=== PATIENT | male | born 1950 | race Caucasian/White ===

== ENCOUNTER 2018-11-15 18:23 | Inpatient (IN) | payer MEDICARE, OTHER ==
[2018-11-15] MEDS ORDERED: ONDANSETRON 4 MG/2 ML VIAL IVP STA (19:58)
[2018-11-15] MEDS ORDERED: fentaNYL (PF) 50 MCG/ML 2 ML AMP IV STA (19:58)
[2018-11-15] MEDS ORDERED: SODIUM CHLORIDE 0.9% 500 ML 500 ML IV ONE (19:58)
--- NOTE | 2018-11-15 20:06 | ED ---
Abdominal Pain HPI - General Chief Complaint: Abdominal Pain Stated Complaint: kidney stones Time Seen by Provider: 11/15/18 19:39 Source: patient Mode of arrival: wheelchair Limitations: no limitations - History of Present Illness Initial Comments: 67-year-old male patient presents to the emergency department today for evaluation of increased left flank pain and nausea. Patient states he woke around 0500 this morning with severe sharp stabbing left flank pain. Patient states that he was taken by ambulance to [facility], had labs and CT scan performed and was diagnosed with kidney stone. Patient states he was discharged back to the nursing facility where he resides, states that he was pain-free for several hours however the pain started again. Patient states he was given Phenix however did not seem to relieve his symptoms. Patient comes in requesting fentanyl. Patient states he is urinating without difficulty. Denies any hematuria. Denies any fever or chills. Patient states he did have a kidney stone one time in the past in 1987. Patient denies any recent rash, shortness breath, chest pain, diarrhea, constipation, back pain, numbness, tingling, dizziness, weakness, headache, visual changes, or any other complaints. - Related Data Home Medications Medication Instructions Recorded Confirmed Acetaminophen [Tylenol] 650 mg PO Q6H PRN 11/15/18 11/15/18 Cyanocobalamin (Vitamin B-12) 1,000 mcg PO DAILY 11/15/18 11/15/18 [Vitamin B-12] Ferrous Sulfate [Iron (65 MG 325 mg PO DAILY 11/15/18 11/15/18 Elemental)] Folic Acid 0.4 mg PO DAILY@0800 11/15/18 11/15/18 HYDROcodone/APAP 5-325MG [Phenix 1 - 2 tab PO Q4H PRN 11/15/18 11/15/18 5-325] Ondansetron HCl [Zofran] 8 mg PO Q8H PRN 11/15/18 11/15/18 Tamsulosin [Flomax] 0.4 mg PO DAILY PRN 11/15/18 11/15/18 Previous Rx's Medication Instructions Recorded Ondansetron [Zofran ODT] 4 mg PO Q8HR PRN #10 tab 11/15/18 Allergies Allergy/AdvReac Type Severity Reaction Status Date / Time Penicillins Allergy Unknown Verified 11/15/18 19:47 Childhood morphine AdvReac Nausea & Verified 11/15/18 19:47 Vomiting Review of Systems ROS Statement: Those systems with pertinent positive or pertinent negative responses have been documented in the HPI. ROS Other: All systems not noted in ROS Statement are negative. Past Medical History Additional Past Medical History / Comment(s): arthritis. scoliosis History of Any Multi-Drug Resistant Organisms: None Reported Past Surgical History: Hernia Repair Past Psychological History: No Psychological Hx Reported Smoking Status: Never smoker Past Alcohol Use History: Occasional Past Drug Use History: None Reported General Exam Limitations: no limitations General appearance: alert, in no apparent distress, other (Physical well- developed, well-nourished adult male patient who exhibits severe scoliosis. Vital signs upon presentation are temperature 98.2F, pulse 87, respirations 20, blood pressure 109/59, pulse ox 90% on room air.) Eye exam: Present: normal appearance, PERRL, EOMI. Absent: scleral icterus, conjunctival injection, periorbital swelling ENT exam: Present: normal exam, normal oropharynx, mucous membranes moist Respiratory exam: Present: normal lung sounds bilaterally. Absent: respiratory distress, wheezes, rales, rhonchi, stridor Cardiovascular Exam: Present: regular rate, normal rhythm, normal heart sounds. Absent: systolic murmur, diastolic murmur, rubs, gallop, clicks GI/Abdominal exam: Present: soft, normal bowel sounds. Absent: distended, tenderness, guarding, rebound, rigid Neurological exam: Present: alert, oriented X3, CN II-XII intact Psychiatric exam: Present: normal affect, normal mood Skin exam: Present: warm, dry, intact, normal color. Absent: rash Course Vital Signs 11/15/18 19:18 Temperature 98.0 F Pulse Rate 87 Respiratory 20 Rate Blood Pressure 109/59 O2 Sat by Pulse 90 L Oximetry Medical Decision Making - Medical Decision Making 67-year-old male patient coming from [facility] for evaluation of intractable left flank pain. Patient was diagnosed with kidney stone this morning. Was seen and evaluated at [facility] and discharge. Dr. Rudolph the patient's physician wanted him transferred here for admission for intractable pain. Patient was given medication in the emergency department, he does currently report improvement of symptoms. He'll be admitted for observation. Report was reviewed from [facility] urinalysis shows negative glucose, 1+ protein, negative bilirubin, less than 2 urobilinogen, 5 pH, 3+ blood, negative ketones, negative nitrite, negative leukocyte esterase, cloudy clarity, normal specific gravity, and yellow color. Patient did have greater than 20 red blood cells. White blood cell count is 12.1. BUN 25, creatinine 1.4. CT of the abdomen and pelvis was obtained. Showed an obstructing 4 mm proximal left ureter calculus causing mild to moderate left-sided hydronephrosis. Disposition Clinical Impression: Kidney stone on left side Disposition: ADMITTED IP TO THIS [facility] Condition: Serious Additional Instructions: Increase fluids. Continue medications as directed. Follow-up with the primary care physician for recheck in 1-2 days. Return to the emergency department immediately for any new, worsening, or concerning symptoms. Prescriptions: Ondansetron [Zofran ODT] 4 mg PO Q8HR PRN #10 tab PRN Reason: Nausea Referrals: Dashawn Rudolph MD [Primary Care Provider] - 1-2 days Decision to Admit Reason: Admit from [facility] Decision Date: 11/15/18 Decision Time: 21:20
[2018-11-15] MEDS ORDERED: NALOXONE 0.4 MG/ML 1 ML VIAL IV PRN (21:09)
[2018-11-15] MEDS ORDERED: HYDROmorphone 0.5 MG/0.5 ML SYRINGE IVP PRN (21:09)
[2018-11-15] MEDS ORDERED: HYDROcodone/APAP 5-325MG 1 EACH TAB PO PRN (21:11)
[2018-11-16] MEDS: SODIUM CHLORIDE 0.9% 1,000 ML IV SCH ×2 (00:15→08:27)
[2018-11-16] MEDS: TAMSULOSIN 0.4 MG CAP.ER.24H PO PRN (08:14)
[2018-11-16] MEDS: FOLIC ACID 1 MG TAB PO SCH (08:14)
[2018-11-16] MEDS: FERROUS SULFATE 325 MG TAB PO SCH (08:14)
[2018-11-16] MEDS: CYANOCOBALAMIN 500 MCG TAB PO SCH (08:14)
[2018-11-16 10:17] LABS: Albumin 3.6 g/dL (3.5-5.0); Calcium 8.7 mg/dL (8.4-10.2); Total Bilirubin 0.6 mg/dL (0.2-1.3); Total Protein 6.1 g/dL (6.3-8.2)
[2018-11-16 11:59] VITALS: BMI 17.4
[2018-11-16 13:10] LABS: Amorphous Sediment,Urine Rare /hpf; Appearance,Urine Cloudy (Clear); Bacteria,Urine Rare /hpf; Bilirubin,Urine Negative (Negative); Blood,Urine Moderate (Negative); Color,Urine Light Red; Glucose,Urine (UA) Negative (Negative); Ketones,Urine Negative (Negative); Leukocyte Esterase,Urine Moderate (Negative); Mucus,Urine Rare /hpf; Nitrite,Urine Negative (Negative); Protein,Urine Trace (Negative); RBC,Urine >182 /hpf (0-5); Squamous Epithelial Cell,Urine 1 /hpf (0-4); Urobilinogen,Urine <2.0 mg/dL (<2.0); WBC,Urine 26 /hpf (0-5)
--- NOTE | 2018-11-16 13:59 | XR ---
EXAMINATION TYPE: XR KUB DATE OF EXAM: 11/16/2018 1:53 PM CLINICAL HISTORY: Left-sided kidney pain. TECHNIQUE: Single supine KUB image of the abdomen is obtained. COMPARISON: None. FINDINGS: There is marked underlying rotary scoliosis distorting normal anatomy making evaluation sub optimal. Rounded densities in the pelvis favor bilateral phleboliths. There is 4 mm round density brian r level of left superior sacroiliac joint could reflect mid ureter calculus. There is overall nonobstructive bowel gas pattern. Visualized lung bases are clear. IMPRESSION: Possible 4 mm mid left ureter calculus.
--- NOTE | 2018-11-16 14:16 | P.NPCON ---
History of Present Illness - Reason for Consult acute renal failure - History of Present Illness Reason for consultation: Acute kidney injury History of present illness: Patient is a 67-year-old male seen in consultation for acute kidney injury. Unclear as to what his baseline renal function is. Creatinine on admission was 2.94. From the ER notes it appears patient's creatinine was 1.4 when he was at [facility] yesterday. Patient states he went to [facility] yesterday due to flank pain. Patient was noted to have kidney stones. He was given pain medication and subsequently discharged back to [facility]. However yesterday evening he developed recurrent flank pain and was brought to [facility]. Patient had a KUB x-ray done this morning which revealed a possible 4 mm left ureteral calculus. His pain is better controlled. Patient of good urine output. No hematuria or dysuria. Patient had an episode of vomiting last night but none today. Oral intake is good. He is maintained on IV fluids. Patient denies use of nonsteroidals. He denies any family history of renal disease. Hemodynamically stable. No fever or chills. Vital signs are stable. General: The patient appeared well nourished and normally developed. HEENT: Head exam is unremarkable. Neck is without jugular venous distension. LUNGS: Breath sounds decreased. HEART: Rate and Rhythm are regular. First and second heart sounds normal. No murmurs, rubs or gallops. ABDOMEN: Abdominal exam reveals normal bowel sounds. Non-tender and non- distended. No evidence of peritonitis. EXTREMITITES: No clubbing, cyanosis, or edema. Past Medical History Additional Past Medical History / Comment(s): arthritis. scoliosis History of Any Multi-Drug Resistant Organisms: None Reported Past Surgical History: Hernia Repair Past Psychological History: No Psychological Hx Reported Smoking Status: Never smoker Past Alcohol Use History: Occasional Past Drug Use History: None Reported - Past Family History Mother History Unknown: Yes Medications and Allergies Home Medications Medication Instructions Recorded Confirmed Type Acetaminophen [Tylenol] 650 mg PO Q6H PRN 11/15/18 11/15/18 History Cyanocobalamin (Vitamin B-12) 1,000 mcg PO DAILY 11/15/18 11/15/18 History [Vitamin B-12] Ferrous Sulfate [Iron (65 MG 325 mg PO DAILY 11/15/18 11/15/18 History Elemental)] Folic Acid 0.4 mg PO DAILY@0800 11/15/18 11/15/18 History HYDROcodone/APAP 5-325MG [Malone 1 - 2 tab PO Q4H PRN 11/15/18 11/15/18 History 5-325] Ondansetron HCl [Zofran] 8 mg PO Q8H PRN 11/15/18 11/15/18 History Ondansetron [Zofran ODT] 4 mg PO Q8HR PRN #10 tab 11/15/18 Rx Tamsulosin [Flomax] 0.4 mg PO DAILY PRN 11/15/18 11/15/18 History Allergies Allergy/AdvReac Type Severity Reaction Status Date / Time Penicillins Allergy Unknown Verified 11/15/18 19:47 Childhood morphine AdvReac Nausea & Verified 11/15/18 19:47 Vomiting Physical Exam Vitals: Vital Signs Temp Pulse Pulse Resp BP BP BP 11/16/18 05:10 98.4 F 85 20 115/68 11/15/18 23:00 98.3 F 88 20 144/66 11/15/18 22:34 87 18 139/67 11/15/18 19:18 98.0 F 87 20 109/59 Pulse Ox 11/16/18 05:10 94 L 11/15/18 23:00 94 L 11/15/18 22:34 91 L 11/15/18 19:18 90 L Intake and Output 11/15/18 11/16/18 11/16/18 22:59 06:59 14:59 Intake Total 200 200 Output Total 75 Balance 125 200 Intake: Oral 200 200 Output: Urine 75 Other: # Voids 1 1 Weight 43.091 kg 43.091 kg Results - Lab Results Most recent lab results Calcium 8.7 mg/dL (8.4-10.2) 11/16/18 09:36 11/16/18 09:36 Assessment and Plan Plan: Assessment: 1. Acute kidney injury secondary to ATN secondary to infection. Rule out obstructive uropathy. Patient's creatinine today was 2.94. From the ER note, it appears patient's creatinine was 1.4 yesterday when he was at [facility]. No other records available. 2. Left-sided nephrolithiasis. 3. Pyuria. 4. Congenital spinal deformity. Plan: Maintain normal saline at 75 mL an hour. Check renal ultrasound. Check urine culture. Repeat electrolytes in the morning. Urology also consulted. Avoid nephrotoxins. Thank you for the consultation. I will continue to follow the patient with you during his hospital stay.
--- NOTE | 2018-11-16 15:49 | P.GSCN ---
History of Present Illness Consult date: 11/16/18 History of present illness: The patient is a 67-year-old gentleman who comes [facility] a [facility] with left ureteral colic due to a kidney stone. He was in [facility] recently and was identified on CAT scan today to 4 mm upper ureteral stone on the left. 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 The patient is denying pain. He states that he had stones many years ago that passed spontaneously. He's been unaware of any other stones. There was question whether the urine is infected however to me it does not look like it. He does not have any clinical evidence of infection at this point in time. He is afebrile and his white blood cell count is normal. The patient does not have a history of urinary infections. His creatinine has gone from 1.4 to 2.8. Review of Systems The patient is not interested in answering any questions Past Medical History Additional Past Medical History / Comment(s): arthritis. scoliosis History of Any Multi-Drug Resistant Organisms: None Reported Past Surgical History: Hernia Repair Past Psychological History: No Psychological Hx Reported Smoking Status: Never smoker Past Alcohol Use History: Occasional Past Drug Use History: None Reported - Past Family History Mother History Unknown: Yes Medications and Allergies Home Medications Medication Instructions Recorded Confirmed Type Acetaminophen [Tylenol] 650 mg PO Q6H PRN 11/15/18 11/15/18 History Cyanocobalamin (Vitamin B-12) 1,000 mcg PO DAILY 11/15/18 11/15/18 History [Vitamin B-12] Ferrous Sulfate [Iron (65 MG 325 mg PO DAILY 11/15/18 11/15/18 History Elemental)] Folic Acid 0.4 mg PO DAILY@0800 11/15/18 11/15/18 History HYDROcodone/APAP 5-325MG [Pitman 1 - 2 tab PO Q4H PRN 11/15/18 11/15/18 History 5-325] Ondansetron HCl [Zofran] 8 mg PO Q8H PRN 11/15/18 11/15/18 History Ondansetron [Zofran ODT] 4 mg PO Q8HR PRN #10 tab 11/15/18 Rx Tamsulosin [Flomax] 0.4 mg PO DAILY PRN 11/15/18 11/15/18 History Allergies Allergy/AdvReac Type Severity Reaction Status Date / Time Penicillins Allergy Unknown Verified 11/15/18 19:47 Childhood morphine AdvReac Nausea & Verified 11/15/18 19:47 Vomiting Surgical - Exam Vital Signs Temp Pulse Resp BP Pulse Ox 98.0 F 87 20 109/59 90 L 11/15/18 19:18 11/15/18 19:18 11/15/18 19:18 11/15/18 19:18 11/15/18 19:18 - General The patient has marked kyphoscoliosis. He is difficult to communicate with. He is not interested in much of what I have to say. - Eyes Glasses PERRL - Respiratory No significant difficulty breathing marked barrel chesting - Musculoskeletal Marked kyphoscoliosis. - Psychiatric oriented to time, oriented to person, oriented to place, speech is normal, memory intact Results - Labs 11/16/18 09:36 Abnormal Lab Results - Last 24 Hours (Table) 11/16/18 11/16/18 Range/Units 09:36 12:45 Chloride 108 H (98-107) mmol/L BUN 40 H (9-20) mg/dL Creatinine 2.94 H (0.66-1.25) mg/dL Glucose 104 H (74-99) mg/dL ALT 19 L (21-72) U/L Total Protein 6.1 L (6.3-8.2) g/dL Urine Protein Trace H (Negative) Urine Blood Moderate H (Negative) Ur Leukocyte Esterase Moderate H (Negative) Urine RBC >182 H (0-5) /hpf Urine WBC 26 H (0-5) /hpf Amorphous Sediment Rare H (None) /hpf Urine Bacteria Rare H (None) /hpf Urine Mucus Rare H (None) /hpf Diabetes panel 11/16/18 Range/Units 09:36 Sodium 143 (137-145) mmol/L Potassium 5.0 (3.5-5.1) mmol/L Chloride 108 H (98-107) mmol/L Carbon Dioxide 28 (22-30) mmol/L BUN 40 H (9-20) mg/dL Creatinine 2.94 H (0.66-1.25) mg/dL Glucose 104 H (74-99) mg/dL Calcium 8.7 (8.4-10.2) mg/dL AST 19 (17-59) U/L ALT 19 L (21-72) U/L Alkaline Phosphatase 65 (38-126) U/L Total Protein 6.1 L (6.3-8.2) g/dL Albumin 3.6 (3.5-5.0) g/dL Calcium panel 11/16/18 Range/Units 09:36 Calcium 8.7 (8.4-10.2) mg/dL Albumin 3.6 (3.5-5.0) g/dL Pituitary panel 11/16/18 Range/Units 09:36 Sodium 143 (137-145) mmol/L Potassium 5.0 (3.5-5.1) mmol/L Chloride 108 H (98-107) mmol/L Carbon Dioxide 28 (22-30) mmol/L BUN 40 H (9-20) mg/dL Creatinine 2.94 H (0.66-1.25) mg/dL Glucose 104 H (74-99) mg/dL Calcium 8.7 (8.4-10.2) mg/dL Adrenal panel 11/16/18 Range/Units 09:36 Sodium 143 (137-145) mmol/L Potassium 5.0 (3.5-5.1) mmol/L Chloride 108 H (98-107) mmol/L Carbon Dioxide 28 (22-30) mmol/L BUN 40 H (9-20) mg/dL Creatinine 2.94 H (0.66-1.25) mg/dL Glucose 104 H (74-99) mg/dL Calcium 8.7 (8.4-10.2) mg/dL Total Bilirubin 0.6 (0.2-1.3) mg/dL AST 19 (17-59) U/L ALT 19 L (21-72) U/L Alkaline Phosphatase 65 (38-126) U/L Total Protein 6.1 L (6.3-8.2) g/dL Albumin 3.6 (3.5-5.0) g/dL - Imaging Abdominal x-ray: report reviewed, image reviewed CT scan - abdomen: report reviewed, image reviewed CT scan - pelvis: report reviewed, image reviewed US - abdomen: report reviewed, image reviewed Assessment and Plan Assessment: Impression: Left ureteral calculus, asymptomatic. Left hydronephrosis with renal insufficiency probably secondary to prerenal as well as obstructive causes. Severe COPD with marked kyphoscoliosis, congenital Recommendations: I reviewed the computed tomography scan from [facility] as well as the ultrasound and KUB here. I suspect the renal insufficiency is a combination of decreased fluid intake as well as obstruction. How much of this is due to chronic renal insufficiency is indeterminate. The patient is hydronephrotic on the left side. The stone was 4 mm in the proximal ureter. I tried to described the patient is status of his ureter but he states that he is not interested in anything being done. I explained to him that he could pass it spontaneously but he may not. I explained to the patient indications for surgery but he was not interested in listening to these. He states that he is not interested in having any surgery whatsoever. If further urologic consultation is requested please fill free to contact us. At this point in time due to the patient's lack of desire of having any potential urologic intervention in the future I will sign off the case.
--- NOTE | 2018-11-16 15:54 | US ---
EXAMINATION TYPE: US kidneys/renal and bladder DATE OF EXAM: 11/16/2018 COMPARISON: KUB CLINICAL HISTORY: michel.; marked underlying rotary scoliosis distorting normal anatomy making evaluatio n suboptimal; left ureteral calculus per KUB today; patient sat upright for exam per his verbal prefe rence. EXAM MEASUREMENTS: Right Kidney: assessed in multiple views and not seen due to above clinical history Left Kidney: 9.8 x 6.7 x 6.0 cm Right Kidney: not seen due to anatomical limitations and rib shadowing Left Kidney: mild hydronephrosis, mid pole hyperechoic foci with posterior shadowing = 0.7 x 1.0 x 0. 3cm; mid pole cortical cyst = 0.8 x 0.7 x 0.8cm Bladder: not assessed as patient unable to lay supinely IMPRESSION: Right kidney is not identified. Left kidney shows some hydronephrosis and calcification that could re late to obstruction at the ureteropelvic junction. Urinary bladder not evaluated.
--- NOTE | 2018-11-16 17:27 | HP ---
HISTORY AND PHYSICAL Dr. Alcazar is covering for Dr. Dashawn Rudolph. DATE OF SERVICE: 11/16/2018 HISTORY OF PRESENT ILLNESS: Patient is a 67-year-old male who started to experience worsening left flank pain with associated nausea yesterday at the [facility] where he [facility], which is [facility]. The patient was taken to [facility] and evaluated in the emergency room and discharged. Patient continued to experience this extreme pain and was told he had a slight fever when he was at [facility]. The patient contacted his primary care physician and was told to go to [facility] Emergency Room to be admitted with an acute kidney stone. PAST MEDICAL HISTORY: Past medical history is significant for arthritis and severe scoliosis. PAST SURGICAL HISTORY: Past surgical history is significant for hernia repair and tonsillectomy. ALLERGIES: ALLERGIES INCLUDE PENICILLIN and MORPHINE. MEDICATIONS: Medications patient is on at [facility] include: 1. Tylenol 650 mg p.o. q.6 hours p.r.n. 2. Vitamin B12 1000 mcg p.o. daily. 3. Iron 325 mg p.o. daily. 4. Folic acid 0.4 mg p.o. daily. 5. Gwinner 5/325 one to two tablets p.o. q.4 hours p.r.n. 6. Zofran 8 mg p.o. q.8 hours p.r.n. 7. Flomax 0.4 mg p.o. daily. FAMILY HISTORY: Father in his 80s of some type of complications. Mother at the age of 91 from old age. SOCIAL HISTORY: No history of smoking. Occasional alcohol, glass of wine. Patient did work in a factory. REVIEW OF SYSTEMS: GENERAL: Negative for any fever. Patient did complain of chills and did state that he was told he had a slight fever at [facility]. Patient's weight is stable. HEENT: Denies any headaches. Denies any vision changes. Does have some difficulty hearing. Denies any sore throat or difficulty swallowing. RESPIRATORY: Positive for shortness of breath at times. Patient states the biggest thing is that he tires very easily. CARDIOVASCULAR: Negative for chest pain. GI: Negative for any stomach pain, although the patient does have significant lower left quadrant pain that radiates up to the back at this time. : Again positive for kidney stone with significant pain on that left side. ENDOCRINE: Negative for any diabetes mellitus or thyroid disease. MUSCULOSKELETAL: Positive for severe scoliosis. NEUROLOGIC: Negative for seizures or CVA. PSYCHIATRIC: Negative for anxiety. Patient said a kidney stone is depressing in and of itself. PHYSICAL EXAMINATION: GENERAL: Pleasant 67-year-old male who is sitting up at the bedside and does exhibit severe scoliosis. VITAL SIGNS: Temperature is 98.5, heart rate 86, respiratory rate 18, blood pressure 122/71. Oxygen saturation is 95% on nasal cannula at 2 L. HEENT: Head is normocephalic, atraumatic. Patient would not let me assess his pupils. Ears and nose: No discharge was noted. Mouth: Very difficult for patient to open up his mouth. Mucous membranes appear moist. The patient does have poor dental hygiene. LUNGS: Sounds diminished. HEART: S1 and S2 are heard. Not tachycardic. ABDOMEN: Soft. Pain on that left side. EXTREMITIES: No edema. NEUROLOGIC: Patient is awake, alert, oriented. LABS: Sodium is 143, potassium 5.0, chloride 108. CO2 is 28. Anion gap is 7. BUN is 40, creatinine 2.94. Glucose is 104, calcium 8.7, total bilirubin 0.6, AST 19, ALT 19, alkaline phosphatase 65, total protein 6.1, albumin 3.6. Urinalysis: trace protein, moderate blood, moderate leukocyte esterase, greater than 182 red blood cells, 26 white blood cells. IMAGING: Ultrasound of the kidneys and bladder: Right kidney is not identified. Left kidney shows some hydronephrosis and calcification that could relate to obstruction at the ureteropelvic junction. Urinary bladder is not evaluated. KUB shows a possible 4 mm mid left ureter calculus. IMPRESSION: 1. Left ureter calculus. 2. Left hydronephrosis. 3. Acute kidney injury. PLAN: Consult Urology. Consult Nephrology. GI and DVT prophylaxis. Pain control. Home medications. Again, this patient is being seen by Dr. Britt Alcazar covering for Dr. Dashawn Rudolph. MMODL / IJN: [id number] /
[2018-11-17] MEDS: SODIUM CHLORIDE 0.9% 1,000 ML IV SCH ×2 (05:45→13:20)
[2018-11-17] MEDS: FOLIC ACID 1 MG TAB PO SCH (08:30)
[2018-11-17] MEDS: CYANOCOBALAMIN 500 MCG TAB PO SCH (08:30)
[2018-11-17] MEDS: FERROUS SULFATE 325 MG TAB PO SCH (08:30)
[2018-11-17] MEDS: PANTOPRAZOLE 40 MG TABLET PO SCH (08:30)
[2018-11-17] MEDS: TAMSULOSIN 0.4 MG CAP.ER.24H PO PRN (08:57)
[2018-11-17 11:29] LABS: Basophils # (A) 0.1 k/uL (0-0.2); Basophils % (A) 1 %; Eosinophils # (A) 0.2 k/uL (0-0.7); Eosinophils % (A) 3 %; HCT 34.8 % (39.0-53.0); HGB 9.9 gm/dL (13.0-17.5); Hypochromasia Marked; Lymphocytes # (A) 0.9 k/uL (1.0-4.8); Lymphocytes % (A) 15 %; MCH 19.7 pg (25.0-35.0); MCHC 28.4 g/dL (31.0-37.0); MCV 69.4 fL (80.0-100.0); Mean Platelet Volume 7.4; Microcytosis Marked; Monocytes # (A) 0.4 k/uL (0-1.0); Monocytes % (A) 6 %; Neutrophils # (A) 4.8 k/uL (1.3-7.7); Neutrophils % (A) 75 %; Platelet Count 165 k/uL (150-450); RBC 5.02 m/uL (4.30-5.90); RDW 15.9 % (11.5-15.5); WBC 6.4 k/uL (3.8-10.6)
--- NOTE | 2018-11-17 11:47 | XR ---
EXAMINATION TYPE: XR chest 1V portable DATE OF EXAM: 11/17/2018 HISTORY: r/o pneumonia, requiring O2 . REFERENCE: NONE. FINDINGS: There is a severe levoscoliosis. The heart does not appear enlarged. The lungs appear clear . Pleural spaces are clear. IMPRESSION: SEVERE LEVOSCOLIOSIS.
[2018-11-17 11:51] LABS: Albumin 3.6 g/dL (3.5-5.0); Calcium 8.2 mg/dL (8.4-10.2); Magnesium 2.1 mg/dL (1.6-2.3); Potassium 4.9 mmol/L (3.5-5.1); Total Bilirubin 0.5 mg/dL (0.2-1.3); Total Protein 6.3 g/dL (6.3-8.2)
--- NOTE | 2018-11-17 14:13 | P.CNPUL ---
History of Present Illness Consult date: 11/17/18 Reason for consult: dyspnea, cough, hypoxemia Chief complaint: Renal calculi and hypoxia History of present illness: This is a 67-year-old male seen and evaluated examined in the medical floor this patient is admitted to hospital with left ureteric calculi she was identified as having left ureteral 4 mm stones off note that patient has severe extensive kyphoscoliosis he have borderline shortness of breath patient is currently denies any shortness of breath or chest pain symptoms improve however her room air saturation was just 93%, he require 2 L oxygen denies any cough or sputum production denies any chest pain denies any shortness of breath at this time Review of Systems All systems: negative Past Medical History Additional Past Medical History / Comment(s): arthritis. scoliosis History of Any Multi-Drug Resistant Organisms: None Reported Past Surgical History: Hernia Repair Past Psychological History: No Psychological Hx Reported Smoking Status: Never smoker Past Alcohol Use History: Occasional Past Drug Use History: None Reported - Past Family History Mother History Unknown: Yes Medications and Allergies Home Medications Medication Instructions Recorded Confirmed Type Acetaminophen [Tylenol] 650 mg PO Q6H PRN 11/15/18 11/15/18 History Cyanocobalamin (Vitamin B-12) 1,000 mcg PO DAILY 11/15/18 11/15/18 History [Vitamin B-12] Ferrous Sulfate [Iron (65 MG 325 mg PO DAILY 11/15/18 11/15/18 History Elemental)] Folic Acid 0.4 mg PO DAILY@0800 11/15/18 11/15/18 History HYDROcodone/APAP 5-325MG [[place] 1 - 2 tab PO Q4H PRN 11/15/18 11/15/18 History 5-325] Ondansetron HCl [Zofran] 8 mg PO Q8H PRN 11/15/18 11/15/18 History Ondansetron [Zofran ODT] 4 mg PO Q8HR PRN #10 tab 11/15/18 Rx Tamsulosin [Flomax] 0.4 mg PO DAILY PRN 11/15/18 11/15/18 History Allergies Allergy/AdvReac Type Severity Reaction Status Date / Time Penicillins Allergy Unknown Verified 11/15/18 19:47 Childhood morphine AdvReac Nausea & Verified 11/15/18 19:47 Vomiting Physical Exam Vitals: Vital Signs Temp Pulse Resp BP Pulse Ox 06/01/19 13:10 98 11/17/18 13:04 98.8 F 90 18 121/65 87 L 11/17/18 08:29 96 118/68 98 11/17/18 08:00 83 L 11/17/18 04:45 97.8 F 89 22 131/74 93 L 11/16/18 23:38 84 11/16/18 21:05 97.9 F 84 20 117/51 91 L 11/16/18 17:34 86 L Intake and Output 11/16/18 11/17/18 11/17/18 22:59 06:59 14:59 Intake Total 100 100 Output Total 75 0 Balance 100 25 0 Intake: Oral 100 100 Output: Urine 75 Post Void Residual 0 Other: # Voids 0 0 0 - Constitutional General appearance: average body habitus, cooperative, no acute distress - EENT Eyes: EOMI, PERRLA Ears: bilateral: normal - Neck Neck: normal ROM Carotids: bilateral: upstroke normal - Respiratory Severe kyphoscoliosis present Respiratory: bilateral: CTA - Cardiovascular Rhythm: regular Heart sounds: normal: S1, S2 - Gastrointestinal General gastrointestinal: normal bowel sounds - Neurologic Neurologic: CNII-XII intact - Musculoskeletal Musculoskeletal: generalized weakness, strength equal bilaterally - Psychiatric Psychiatric: A&O x's 3, appropriate affect, intact judgment & insight Results - Laboratory Findings CBC and BMP: 11/17/18 11:09 11/17/18 11:08 Abnormal lab findings: Abnormal Labs 11/16/18 11/16/18 11/17/18 09:36 12:45 11:08 Hgb Hct MCV MCH MCHC RDW Lymphocytes # Chloride 108 H 108 H BUN 40 H 54 H Creatinine 2.94 H 5.74 H Glucose 104 H Calcium 8.2 L ALT 19 L 18 L Total Protein 6.1 L Urine Protein Trace H Urine Blood Moderate H Ur Leukocyte Esterase Moderate H Urine RBC >182 H Urine WBC 26 H Amorphous Sediment Rare H Urine Bacteria Rare H Urine Mucus Rare H 11/17/18 11:09 Hgb 9.9 L Hct 34.8 L MCV 69.4 L MCH 19.7 L MCHC 28.4 L RDW 15.9 H Lymphocytes # 0.9 L Chloride BUN Creatinine Glucose Calcium ALT Total Protein Urine Protein Urine Blood Ur Leukocyte Esterase Urine RBC Urine WBC Amorphous Sediment Urine Bacteria Urine Mucus - Diagnostic Findings Chest x-ray: report reviewed, image reviewed (Lungs are clear severe level scoliosis present) Assessment and Plan Assessment: Hypoxia related to hypoventilation Renal calculi left Acute renal failure related to above Left renal hydronephrosis Suspect chronic hypoxia and chronic hypercapnia likely chronic hypercapnic hypoxic respiratory failure Plan: Check arterial blood gases at supplemental oxygen For now keep supplemental oxygen May need BiPAP machine or noninvasive ventilator as outpatient Time with Patient: Greater than 30
[2018-11-17 14:44] LABS: ABG Base Excess -4.2 mmol/L; ABG HCO3 23 mmol/L (21-25); ABG Oxygen Saturation 89.8 % (94-97); ABG PCO2 52 mmHg (35-45); ABG PH 7.25 (7.35-7.45); ABG PO2 66 mmHg (83-108); ABG TCO2 25 mmol/L (19-24); Allen Test Performed? Yes
--- NOTE | 2018-11-17 15:19 | PN ---
PROGRESS NOTE SUBJECTIVE: This is a white male with dyspnea, cough, hypoxemia, urinary retention. Continue . Continue current treatment. Due to extensive kyphoscoliosis, urinary retention and is maintaining oxygen is in 80s at which time, Pulmonary has been consulted. Chest x-ray has been ordered. Urinary retention is being dealt with IV fluids. Labs are reviewed. ASSESSMENT: 1. Left renal hydronephrosis. 2. Suspect chronic hypoxemia and hypercapnia due to chronic hypercapnic hypoxemic respiratory failure. 3. Possibly a BiPAP at home per Pulmonology. 4. Hypoxemia related to hypoventilation. 5. Renal calculi, left. 6. Acute renal failure secondary to above. Await for multiple consultations, recommendations. Keep him with fluid rehydration at this time. Monitor potassium levels. MMODL / IJN: [id number] /
--- NOTE | 2018-11-17 16:40 | PN ---
PROGRESS NOTE The patient is seen for followup for acute kidney injury. He was admitted with a serum creatinine of 2.9 mg/dL. We do not have any prior previous labs available for comparison. The patient is maintained on IV fluids. The ultrasound of the kidneys yesterday does show evidence of left kidney hydronephrosis and possible UPJ junction obstruction. The right kidney could not be usual visualized. The KUB shows a 4 mm mid left ureteral calculus. The patient was seen by Urology. However, at that time, the patient did not want to consider any surgical intervention. This morning, serum creatinine is up to 5.7. The patient has had decreased urine output. He is maintained on IV fluids. There are no other nephrotoxic medications on board at this time. Blood pressure is not significantly low. PHYSICAL EXAMINATION: This morning blood pressure was 118/68, heart rate 96 per minute. He is afebrile. Examination of the heart S1, S2. Examination lungs bilateral breath sounds are heard. Severe scoliosis is noted. Examination of the lower extremities shows no significant edema. FITNESS PROFESSIONAL exam shows patient is moving all 4 extremities. He has severe scoliosis. LABS: Show sodium 141, potassium 4.9, BUN 54, serum creatinine 5.74. UA shows more than 182 RBCs, WBCs about 26, moderate blood and trace protein. ASSESSMENT: 1. Acute kidney injury, most likely obstructive uropathy with evidence of left hydronephrosis. The right kidney was not visualized on the ultrasound. Urology will be contacted. In the meantime, I will increase the IV fluids to 100 mL an hour. 2. Left ureteral stone with left hydronephrosis. 3. Severe scoliosis. 4. Rule out urinary tract infection. Urine culture is pending. PLAN: Increase IV fluids. Contact Urology. Continue to avoid nephrotoxic agents and repeat labs. Avoid hypotension. MMODL / IJN: [id number] /
--- NOTE | 2018-11-17 18:32 | P.PN ---
Subjective Progress Note Date: 11/17/18 The patient's renal failure has progressed. His creatinine is over 5. I suspect his right kidney is not functioning well and with the left obstructed this is the reason the creatinine is rising. I discussed with the patient the diagnosis and the treatment requirement of a double-J catheter. He seemed to understand. We've consult with the guardian and they understand the need for the placement of the double-J catheter to relieve the renal failure. This is planned for tomorrow. Objective - Vital Signs Vital signs: Vital Signs Temp 98.8 F 11/17/18 13:04 Pulse 90 11/17/18 13:04 Resp 18 11/17/18 13:04 BP 121/65 11/17/18 13:04 Pulse Ox 98 11/17/18 13:10 Intake & Output 11/16/18 11/17/18 11/17/18 18:59 06:59 18:59 Intake Total 200 200 Output Total 75 0 Balance 200 125 0 Weight 43.091 kg Intake: Oral 200 200 Output: Urine 75 Post Void Residual 0 Other: # Voids 1 0 0 - Labs CBC & Chem 7: 11/17/18 11:09 11/17/18 11:08 Labs: Abnormal Lab Results - Last 24 Hours (Table) 11/17/18 11/17/18 11/17/18 Range/Units 11:08 11:09 14:39 Hgb 9.9 L (13.0-17.5) gm/dL Hct 34.8 L (39.0-53.0) % MCV 69.4 L (80.0-100.0) fL MCH 19.7 L (25.0-35.0) pg MCHC 28.4 L (31.0-37.0) g/dL RDW 15.9 H (11.5-15.5) % Lymphocytes # 0.9 L (1.0-4.8) k/uL ABG pH 7.25 L (7.35-7.45) ABG pCO2 52 H (35-45) mmHg ABG pO2 66 L (83-108) mmHg ABG Total CO2 25 H (19-24) mmol/L ABG O2 Saturation 89.8 L (94-97) % Chloride 108 H (98-107) mmol/L BUN 54 H (9-20) mg/dL Creatinine 5.74 H (0.66-1.25) mg/dL Calcium 8.2 L (8.4-10.2) mg/dL ALT 18 L (21-72) U/L Microbiology - Last 24 Hours (Table) 11/16/18 12:45 Urine Culture - Preliminary Urine,Voided
[2018-11-18] MEDS: SODIUM CHLORIDE 0.9% 1,000 ML IV SCH ×3 (02:12→20:12)
[2018-11-18] MEDS: FERROUS SULFATE 325 MG TAB PO SCH (07:02)
[2018-11-18] MEDS: FOLIC ACID 1 MG TAB PO SCH (07:02)
[2018-11-18] MEDS: CYANOCOBALAMIN 500 MCG TAB PO SCH (07:02)
[2018-11-18] MEDS: PANTOPRAZOLE 40 MG TABLET PO SCH (07:02)
[2018-11-18] MEDS: ONDANSETRON 4 MG/2 ML VIAL IVP PRN ×2 (10:16→15:57)
[2018-11-18 11:34] LABS: Anisocytosis Slight; Basophils % (A) 1 %; Eosinophils # (A) 0.2 k/uL (0-0.7); Eosinophils % (A) 4 %; HCT 31.6 % (39.0-53.0); HGB 9.3 gm/dL (13.0-17.5); Hypochromasia Marked; Lymphocytes # (A) 0.7 k/uL (1.0-4.8); Lymphocytes % (A) 12 %; MCH 20.5 pg (25.0-35.0); MCHC 29.4 g/dL (31.0-37.0); MCV 69.7 fL (80.0-100.0); Mean Platelet Volume 7.3; Microcytosis Marked; Monocytes # (A) 0.3 k/uL (0-1.0); Monocytes % (A) 5 %; Neutrophils # (A) 4.6 k/uL (1.3-7.7); Neutrophils % (A) 77 %; Platelet Count 131 k/uL (150-450); RBC 4.54 m/uL (4.30-5.90)
[2018-11-18 11:52] LABS: Albumin 3.2 g/dL (3.5-5.0); Potassium 5.5 mmol/L (3.5-5.1); Total Bilirubin 0.3 mg/dL (0.2-1.3); Total Protein 5.7 g/dL (6.3-8.2)
[2018-11-18] MEDS ORDERED: DEXTROSE 50% SYRINGE 50 ML IVP STA (12:17)
[2018-11-18] MEDS ORDERED: INSULIN REGULAR 100 UNIT/ML VIAL IV ONE (12:19)
[2018-11-18] MEDS ORDERED: ROCURONIUM BROMIDE 10 MG/ML 10 ML VIAL IV ONE (13:48)
[2018-11-18] MEDS ORDERED: NEOSTIGMINE 1 MG/ML 10 ML VIAL ONE (13:48)
[2018-11-18] MEDS ORDERED: GLYCOPYRROLATE 0.2 MG/ML 2 ML VIAL ONE (13:48)
[2018-11-18] MEDS ORDERED: fentaNYL (PF) 50 MCG/ML 2 ML AMP ONE (13:48)
[2018-11-18] MEDS ORDERED: PROPOFOL 10 MG/ML 20 ML VIAL IV ONE (13:48)
[2018-11-18] MEDS ORDERED: SODIUM CHLORIDE 0.9% 1,000 ML IV ONE (13:51)
[2018-11-18] MEDS ORDERED: IOPAMIDOL-370 50ML BTL MISCELLANE ONE (14:21)
--- NOTE | 2018-11-18 14:23 | P.PN ---
Progress Note - Text Progress Note Date: 11/18/18 Unable to see patient as he is currently in the OR.
[2018-11-18] MEDS ORDERED: LACTATED RINGERS 1,000 ML IV ONE ×3 (14:27→14:56)
--- NOTE | 2018-11-18 14:41 | P.OP ---
Date of Procedure: 11/18/18 Preoperative Diagnosis: Left ureteral calculus, left hydronephrosis, renal failure Postoperative Diagnosis: Same Procedure(s) Performed: Cystoscopy, left retrograde pyelogram, placement of double-J catheter 6 x 24 left, Anesthesia: FEI Surgeon: Juanjo iPneda Pathology: none sent Condition: stable Disposition: PACU Indications for Procedure: The patient is 67. He has congenital spinal deformities, barrel chesting COPD and mental handicap. He came in with obstruction from a left ureteral calculus. He had a 4 mm stone in the upper to mid ureter on the left. He has hydronephrosis. His creatinine is gone from normal to 8 over the last couple of days a. His bladder is emptying adequately. Best we can tell the right kidney is not functioning adequately and therefore double-J catheter be placed on the left at minimum to relieve the obstruction. Description of Procedure: The patient is brought to the operating suite. He's placed on the operating table supine position. With care from anesthesia a successful general endotracheal anesthesia is maintained. Fortunately through relaxation his contracted strategies is straightened adequately such that he can be placed in dorsal lithotomy position. Cystoscopy a Foroblique lens and 22-Cymro sheath identifies a normal urethra. The prostate is trilobar with an intravesical obstructing middle lobe. Upon entering the bladder there are multiple small stones are drained out of the bladder. I then inspect the bladder and in its entirety. There is a diverticulum in the right lateral wall with a medium to large mouth and a small to medium size. The left ureteral orifice is normal. I cannot identify the right ureteral orifice. The diverticula is more lateral than I would expect the orifice to be if it was a hutch diverticula. Within a cone-tipped catheter a left retrograde pyelogram was performed. There is marked J hooking of the distal ureter. I see a stone that is obstructing the ureter and the proximal ureter. Stone is very high thus I elect not to proceed with the ureteroscopy at this point in time. I attempted to place an 035 through the ureter but due to the marked J hooking of the ureter unable to do so. I introduced a semirigid ureteroscope into the ureteral orifice and then am able to intubate the ureter with an 035 wire that passes into the kidney. The stone appears to dislodge and fall back into the kidney. Over the wires and passed a 6 x 24 double-J catheter that coils in the renal pelvis and the bladder the bladder strain the patient's awake and returned recovery room good condition Impression relief of obstructed left ureter due to stone. Plan the patient renal failure will hopefully resolve. A later date after the ureters dilated he'll need a flexible ureteroscopy to assess the left collecting system and remove any remaining stone.
--- NOTE | 2018-11-18 14:56 | PN ---
PROGRESS NOTE Patient is seen for followup for acute kidney injury, appears to be mostly obstructed in nature. Serum creatinine did go up to 5.7 from 2.9 yesterday and today it is up at 8.0. The patient was seen by Dr. Pineda again yesterday and he is scheduled for surgery today. This morning he denies any significant complaints except for nausea for which patient has received Zofran, which he was initially refusing. Blood pressure this morning 122/60, heart rate 85 per minute. He is afebrile. Examination of the heart S1, S2. Examination of lungs bilateral breath sounds are heard. Abdomen is soft, nontender. Examination lower extremities shows no significant edema. Patient has severe kyphoscoliosis. LABS: Show sodium 139, potassium 5.5, chloride 113, CO2 is 18, BUN 61, serum creatinine 8.04. ASSESSMENT: 1. Acute kidney injury, obstructive in nature with evidence of left ureteral stone. Right kidney was not adequately visualized. Patient is going for a double-J catheter placement today. 2. Hyperkalemia associated with acute kidney injury and obstructive uropathy. We will treat medically. 3. Metabolic acidosis secondary to progressive renal failure. Expect improvement with improving urinary tract obstruction. PLAN: Continue IV fluids. Treat hyperkalemia with insulin and D50. Repeat potassium this evening. Continue to avoid nephrotoxic agents and repeat labs in a.m. MMODL / IJN: [id number] /
--- NOTE | 2018-11-18 15:06 | FL ---
EXAMINATION TYPE: FL urography retrograde DATE OF EXAM: 11/18/2018 COMPARISON: NONE HISTORY: Fluoroscopic documentation of retrograde urography TECHNIQUE: Fluoroscopy. FINDINGS: Fluoroscopic guidance was provided during procedure performed by Dr. Pineda. A total of 41 seconds of fluoroscopic time was utilized during the procedure and 2 spot images was acquired demons trating opacification of the solitary ureter and ureteral stent partially visualized. IMPRESSION: As Above.
[2018-11-18] MEDS ORDERED: HYDROmorphone 1 MG/ML 1 ML SYRINGE IVP ONE ×2 (15:20→15:40)
[2018-11-18 17:57] LABS: Glucose,Whole Blood 117 mg/dL (75-99)
[2018-11-18 19:11] LABS: Albumin 3.5 g/dL (3.5-5.0); Calcium 8.2 mg/dL (8.4-10.2); Potassium 4.9 mmol/L (3.5-5.1); Total Bilirubin 0.3 mg/dL (0.2-1.3); Total Protein 6.1 g/dL (6.3-8.2)
--- NOTE | 2018-11-18 23:57 | PN ---
PROGRESS NOTE SUBJECTIVE: 67-year-old white male with left-sided kidney stone going to have right urostomy tube placed today as his creatinine went from 3-6. Cardiovascular: S1-S2. Lungs transmitted upper airway sounds. Hematology negative Homans. Psych fair mood and affect. ASSESSMENT: 1. Suspect ureteral stenosis with left side renal stone. 2. Nephrolithiasis. 3. Acute on chronic renal failure. 4. Ureteral stenosis. Stent may be placed. Follow up in next 24 to 48 hours. MMODL / IJN: [id number] /
[2018-11-19] MEDS: SODIUM CHLORIDE 0.9% 1,000 ML IV SCH ×2 (04:34→16:22)
[2018-11-19] MEDS: FOLIC ACID 1 MG TAB PO SCH (07:19)
[2018-11-19] MEDS: FERROUS SULFATE 325 MG TAB PO SCH (07:20)
[2018-11-19] MEDS: CYANOCOBALAMIN 500 MCG TAB PO SCH (07:20)
[2018-11-19] MEDS: PANTOPRAZOLE 40 MG TABLET PO SCH (07:20)
[2018-11-19 09:47] LABS: Anisocytosis Slight; Basophils % (A) 0 %; Eosinophils # (A) 0.2 k/uL (0-0.7); Eosinophils % (A) 2 %; HCT 32.3 % (39.0-53.0); HGB 9.4 gm/dL (13.0-17.5); Hypochromasia Marked; Lymphocytes # (A) 0.5 k/uL (1.0-4.8); Lymphocytes % (A) 6 %; MCH 20.3 pg (25.0-35.0); MCV 69.9 fL (80.0-100.0); Mean Platelet Volume 7.2; Microcytosis Moderate; Monocytes # (A) 0.6 k/uL (0-1.0); Monocytes % (A) 7 %; Neutrophils % (A) 84 %; Platelet Count 149 k/uL (150-450); Poikilocytosis Slight; RBC 4.62 m/uL (4.30-5.90); RDW 16.1 % (11.5-15.5); WBC 8.3 k/uL (3.8-10.6)
[2018-11-19 10:06] LABS: Calcium 8.8 mg/dL (8.4-10.2); Potassium 5.6 mmol/L (3.5-5.1)
[2018-11-19] MEDS ORDERED: INSULIN REGULAR 100 UNIT/ML VIAL IV ONE (10:49)
[2018-11-19] MEDS ORDERED: DEXTROSE 50% SYRINGE 50 ML IVP STA (10:49)
[2018-11-19] MEDS ORDERED: SODIUM BICARB 8.4% 50 ML SYR (1 MEQ/ML) IV STA (10:49)
--- NOTE | 2018-11-19 10:51 | P.PN ---
Subjective Patient is seen in follow-up for acute kidney injury. Unknown baseline renal function. Creatinine peaked at 8.04 this admission and is down to 3.1 today. Etiology is obstructive uropathy. Patient had a cystoscopy done with a left ureteral stent placed on November 18. He admits to good urine output. Oral intake is fair. No vomiting or diarrhea. Vital signs are stable. General: The patient appeared well nourished and normally developed. HEENT: Head exam is unremarkable. Neck is without jugular venous distension. LUNGS: Lungs are clear to auscultation and percussion. Breath sounds decreased. HEART: Rate and Rhythm are regular. First and second heart sounds normal. No murmurs, rubs or gallops. ABDOMEN: Abdominal exam reveals normal bowel sounds. Non-tender and non- distended. No evidence of peritonitis. EXTREMITITES: No clubbing, cyanosis, or edema. Objective - Vital Signs Vital signs: Vital Signs Temp 98.7 F 11/19/18 06:46 Pulse 105 H 11/19/18 06:46 Resp 18 11/19/18 06:46 BP 158/78 11/19/18 06:46 Pulse Ox 96 11/19/18 06:46 Intake & Output 11/18/18 11/19/18 11/19/18 18:59 06:59 18:59 Intake Total 1400 Output Total 0 Balance 1400 Intake: IV 1400 Output: Estimated Blood Loss 0 Other: # Voids 1 3 - Labs CBC & Chem 7: 11/19/18 09:23 11/19/18 09:23 Labs: Abnormal Lab Results - Last 24 Hours (Table) 11/18/18 11/18/18 11/18/18 Range/Units 11:22 11:22 17:54 Hgb 9.3 L (13.0-17.5) gm/dL Hct 31.6 L (39.0-53.0) % MCV 69.7 L (80.0-100.0) fL MCH 20.5 L (25.0-35.0) pg MCHC 29.4 L (31.0-37.0) g/dL RDW 16.0 H (11.5-15.5) % Plt Count 131 L (150-450) k/uL Lymphocytes # 0.7 L (1.0-4.8) k/uL Potassium 5.5 H (3.5-5.1) mmol/L Chloride 113 H (98-107) mmol/L Carbon Dioxide 18 L (22-30) mmol/L BUN 61 H (9-20) mg/dL Creatinine 8.04 H* (0.66-1.25) mg/dL Glucose (74-99) mg/dL POC Glucose (mg/dL) 117 H (75-99) mg/dL Calcium 8.0 L (8.4-10.2) mg/dL AST 12 L (17-59) U/L ALT 18 L (21-72) U/L Total Protein 5.7 L (6.3-8.2) g/dL Albumin 3.2 L (3.5-5.0) g/dL 11/18/18 11/19/18 11/19/18 Range/Units 18:46 09:23 09:23 Hgb 9.4 L (13.0-17.5) gm/dL Hct 32.3 L (39.0-53.0) % MCV 69.9 L (80.0-100.0) fL MCH 20.3 L (25.0-35.0) pg MCHC 29.0 L (31.0-37.0) g/dL RDW 16.1 H (11.5-15.5) % Plt Count 149 L (150-450) k/uL Lymphocytes # 0.5 L (1.0-4.8) k/uL Potassium 5.6 H (3.5-5.1) mmol/L Chloride 112 H 115 H (98-107) mmol/L Carbon Dioxide 18 L (22-30) mmol/L BUN 53 H 43 H (9-20) mg/dL Creatinine 5.43 H 3.21 H (0.66-1.25) mg/dL Glucose 132 H (74-99) mg/dL POC Glucose (mg/dL) (75-99) mg/dL Calcium 8.2 L (8.4-10.2) mg/dL AST 16 L (17-59) U/L ALT 19 L (21-72) U/L Total Protein 6.1 L (6.3-8.2) g/dL Albumin (3.5-5.0) g/dL Assessment and Plan Plan: Assessment: 1. Acute kidney injury secondary to ATN secondary to obstructive uropathy. Creatinine peaked at 8.04 this admission and is down to 2.1 today. Unknown baseline renal function. 2. Left-sided nephrolithiasis with hydronephrosis status post ureteral stent placed on November 18. 3. Pyuria. Urine culture negative so far. 4. Congenital spinal deformity. Severe scoliosis. 5. Hyperkalemia secondary to acute kidney injury and metabolic acidosis. Plan: I will decrease the rate of normal saline to 75 mL an hour. 10 units of IV insulin with an amp of D50 now. 2 A of bicarb IV push. Repeat potassium level this evening. Encourage oral intake. Repeat electrolytes in the morning.
--- NOTE | 2018-11-19 13:16 | P.PN ---
Subjective Progress Note Date: 11/19/18 The patient is in his first postoperative day from placement of a double-J catheter left. His creatinine is gone from 83. Vital signs are stable. I'll obtain a KUB as I suspect the stone migrated back into the kidney during the stent placement. This will help me decide how to treat in the future. Objective - Vital Signs Vital signs: Vital Signs Temp 98.7 F 11/19/18 06:46 Pulse 105 H 11/19/18 06:46 Resp 18 11/19/18 06:46 BP 158/78 11/19/18 06:46 Pulse Ox 96 11/19/18 06:46 Intake & Output 11/18/18 11/19/18 11/19/18 18:59 06:59 18:59 Intake Total 1400 Output Total 0 Balance 1400 Intake: IV 1400 Output: Estimated Blood Loss 0 Other: # Voids 1 3 - Labs CBC & Chem 7: 11/19/18 09:23 11/19/18 09:23 Labs: Abnormal Lab Results - Last 24 Hours (Table) 11/18/18 11/18/18 11/19/18 Range/Units 17:54 18:46 09:23 Hgb 9.4 L (13.0-17.5) gm/dL Hct 32.3 L (39.0-53.0) % MCV 69.9 L (80.0-100.0) fL MCH 20.3 L (25.0-35.0) pg MCHC 29.0 L (31.0-37.0) g/dL RDW 16.1 H (11.5-15.5) % Plt Count 149 L (150-450) k/uL Lymphocytes # 0.5 L (1.0-4.8) k/uL Potassium (3.5-5.1) mmol/L Chloride 112 H (98-107) mmol/L Carbon Dioxide 18 L (22-30) mmol/L BUN 53 H (9-20) mg/dL Creatinine 5.43 H (0.66-1.25) mg/dL Glucose 132 H (74-99) mg/dL POC Glucose (mg/dL) 117 H (75-99) mg/dL Calcium 8.2 L (8.4-10.2) mg/dL AST 16 L (17-59) U/L ALT 19 L (21-72) U/L Total Protein 6.1 L (6.3-8.2) g/dL 11/19/18 Range/Units 09:23 Hgb (13.0-17.5) gm/dL Hct (39.0-53.0) % MCV (80.0-100.0) fL MCH (25.0-35.0) pg MCHC (31.0-37.0) g/dL RDW (11.5-15.5) % Plt Count (150-450) k/uL Lymphocytes # (1.0-4.8) k/uL Potassium 5.6 H (3.5-5.1) mmol/L Chloride 115 H (98-107) mmol/L Carbon Dioxide (22-30) mmol/L BUN 43 H (9-20) mg/dL Creatinine 3.21 H (0.66-1.25) mg/dL Glucose (74-99) mg/dL POC Glucose (mg/dL) (75-99) mg/dL Calcium (8.4-10.2) mg/dL AST (17-59) U/L ALT (21-72) U/L Total Protein (6.3-8.2) g/dL
--- NOTE | 2018-11-19 14:11 | XR ---
Abdomen HISTORY: Indwelling double-J stent, kidney stone Frontal view of the abdomen correlated to prior abdomen dated 11/16/2018 Double-J left-sided ureteral stent is in place. There is a calcification adjacent to the proximal asp ect of the double-J stent. Multiple calcifications are present within the pelvis. There is likely an underlying scoliosis. Lung bases no evident pneumoperitoneum or bowel obstruction. IMPRESSION: Indwelling double-J stent associated calcifications as described. Show a similar appearan ce to prior exam.
--- NOTE | 2018-11-19 15:33 | P.PN ---
Subjective Progress Note Date: 11/19/18 this is a 67-year-old gentleman with left-sided kidney stone, nephrolithiasis, acute on chronic renal failure and multiple other medical issues. Evaluated by urology. Status post cystoscopy with left pyelogram and double J catheter placement. Tolerated the procedure well. Creatinine improved, 3.28. Nauseated, potassium 5.6,receiving insulin and D50 for hyperkalemia.denies chest pain, palpitations or increased shortness of breath. Objective - Vital Signs Vital signs: Vital Signs Temp 99.1 F 11/18/18 14:51 Pulse 118 H 11/18/18 21:54 Resp 17 11/18/18 21:54 BP 123/51 11/18/18 21:54 Pulse Ox 91 L 11/18/18 21:54 Intake & Output 11/18/18 11/19/18 11/19/18 18:59 06:59 18:59 Intake Total 1400 Output Total 0 Balance 1400 Intake: IV 1400 Output: Estimated Blood Loss 0 Other: # Voids 1 3 - Exam PHYSICAL EXAM: VITAL SIGNS: [as above] GENERAL: sitting up at bedside, no acute distress HEENT: Conjunctivae normal. eyes normal. NECK: No JVD. No thyroid enlargement. No LNs CARDIOVASCULAR: S1, S2 regular.. No murmur RESPIRATION: Breath sounds diminished in the bases. No rhonchi or crackles. No bronchial breathing. ABDOMEN: Soft, nontender . No guarding. no masses palpable. Bowel sounds heard. LEGS: No edema. no swelling PSYCHIATRY: Alert and oriented -3, mood and affect normal. NERVOUS SYSTEM: Cranial N 2-12 grossly normal. Moves all 4 limbs. Diffuse weakness No focal deficits. Strength and sensation grossly intact.. Skin: no lesions, no rash Joints: No active swelling. No inflammation. Lymphatic system. No LN neck axilla or groin. - Labs CBC & Chem 7: 11/19/18 09:23 11/19/18 09:23 Labs: Abnormal Lab Results - Last 24 Hours (Table) 11/18/18 11/18/18 11/18/18 Range/Units 11:22 11:22 17:54 Hgb 9.3 L (13.0-17.5) gm/dL Hct 31.6 L (39.0-53.0) % MCV 69.7 L (80.0-100.0) fL MCH 20.5 L (25.0-35.0) pg MCHC 29.4 L (31.0-37.0) g/dL RDW 16.0 H (11.5-15.5) % Plt Count 131 L (150-450) k/uL Lymphocytes # 0.7 L (1.0-4.8) k/uL Potassium 5.5 H (3.5-5.1) mmol/L Chloride 113 H (98-107) mmol/L Carbon Dioxide 18 L (22-30) mmol/L BUN 61 H (9-20) mg/dL Creatinine 8.04 H* (0.66-1.25) mg/dL Glucose (74-99) mg/dL POC Glucose (mg/dL) 117 H (75-99) mg/dL Calcium 8.0 L (8.4-10.2) mg/dL AST 12 L (17-59) U/L ALT 18 L (21-72) U/L Total Protein 5.7 L (6.3-8.2) g/dL Albumin 3.2 L (3.5-5.0) g/dL 11/18/18 Range/Units 18:46 Hgb (13.0-17.5) gm/dL Hct (39.0-53.0) % MCV (80.0-100.0) fL MCH (25.0-35.0) pg MCHC (31.0-37.0) g/dL RDW (11.5-15.5) % Plt Count (150-450) k/uL Lymphocytes # (1.0-4.8) k/uL Potassium (3.5-5.1) mmol/L Chloride 112 H (98-107) mmol/L Carbon Dioxide 18 L (22-30) mmol/L BUN 53 H (9-20) mg/dL Creatinine 5.43 H (0.66-1.25) mg/dL Glucose 132 H (74-99) mg/dL POC Glucose (mg/dL) (75-99) mg/dL Calcium 8.2 L (8.4-10.2) mg/dL AST 16 L (17-59) U/L ALT 19 L (21-72) U/L Total Protein 6.1 L (6.3-8.2) g/dL Albumin (3.5-5.0) g/dL Assessment and Plan Assessment: acute renal failure, secondary to ATN secondary to obstructive uropathy, status post cystoscopy with left ureteral stent placement -left-sided nephrolithiasis with hydronephrosis, status post double-J ureteral stent placement -hyperkalemia secondary to renal failure -Congenital spinal deformity with severe scoliosis plan: Continue on current medication regime ,monitoring and symptomatic treatment. Receiving D50,bicarb and regular IV insulinfor hyperkalemia, repeat potassium this afternoon. IV fluids as per nephrology.KUB ordered as per urology. Close monitoring of renal function, electrolytes with repeat labs ordered for a.m. The impression and plan of care has been dictated as directed. : I performed a history and examination of this patient, discussed the same with the dictator. I agree with the dictator's note ,documented as a scribe. Any additional findings or plans will be noted.
--- NOTE | 2018-11-19 17:36 | P.PN ---
Subjective Progress Note Date: 11/19/18 Principal diagnosis: Hypoxemia related to hypoventilation, severe degree of kyphoscoliosis, hypercapnic hypoxic respiratory failure, renal calculi left, obstructive uropathy with left-sided hydronephrosis, urinary tract colic with left ureteric calculi 11/19/2018, patient seen and evaluated examined during the rounds he is doing better he is status post a stent placement denies any chest pain he is breathing comfortably he remains on oxygen This is a 67-year-old male seen and evaluated examined in the medical floor this patient is admitted to hospital with left ureteric calculi she was identified as having left ureteral 4 mm stones off note that patient has severe extensive kyphoscoliosis he have borderline shortness of breath patient is currently denies any shortness of breath or chest pain symptoms improve however her room air saturation was just 93%, he require 2 L oxygen denies any cough or sputum production denies any chest pain denies any shortness of breath at this time Objective - Vital Signs Vital signs: Vital Signs Temp 97.5 F L 11/19/18 14:09 Pulse 108 H 11/19/18 14:09 Resp 18 11/19/18 14:09 BP 128/57 11/19/18 14:09 Pulse Ox 95 11/19/18 14:09 Intake & Output 11/18/18 11/19/18 11/19/18 18:59 06:59 18:59 Intake Total 1400 540 Output Total 0 Balance 1400 540 Weight 43.091 kg Intake: IV 1400 Oral 540 Output: Estimated Blood Loss 0 Other: Voiding Method Urinal Incontinent # Voids 1 3 6 # Bowel Movements 1 - Exam - Constitutional General appearance: average body habitus, cooperative, no acute distress - EENT Eyes: EOMI, PERRLA Ears: bilateral: normal - Neck Neck: normal ROM Carotids: bilateral: upstroke normal - Respiratory Severe kyphoscoliosis present Respiratory: bilateral: CTA - Cardiovascular Rhythm: regular Heart sounds: normal: S1, S2 - Gastrointestinal General gastrointestinal: normal bowel sounds - Neurologic Neurologic: CNII-XII intact - Musculoskeletal Musculoskeletal: generalized weakness, strength equal bilaterally - Psychiatric Psychiatric: A&O x's 3, appropriate affect, intact judgment & insight - Labs CBC & Chem 7: 11/19/18 09:23 11/19/18 16:17 Labs: Abnormal Lab Results - Last 24 Hours (Table) 11/18/18 11/18/18 11/19/18 Range/Units 17:54 18:46 09:23 Hgb 9.4 L (13.0-17.5) gm/dL Hct 32.3 L (39.0-53.0) % MCV 69.9 L (80.0-100.0) fL MCH 20.3 L (25.0-35.0) pg MCHC 29.0 L (31.0-37.0) g/dL RDW 16.1 H (11.5-15.5) % Plt Count 149 L (150-450) k/uL Lymphocytes # 0.5 L (1.0-4.8) k/uL Potassium (3.5-5.1) mmol/L Chloride 112 H (98-107) mmol/L Carbon Dioxide 18 L (22-30) mmol/L BUN 53 H (9-20) mg/dL Creatinine 5.43 H (0.66-1.25) mg/dL Glucose 132 H (74-99) mg/dL POC Glucose (mg/dL) 117 H (75-99) mg/dL Calcium 8.2 L (8.4-10.2) mg/dL AST 16 L (17-59) U/L ALT 19 L (21-72) U/L Total Protein 6.1 L (6.3-8.2) g/dL 11/19/18 Range/Units 09:23 Hgb (13.0-17.5) gm/dL Hct (39.0-53.0) % MCV (80.0-100.0) fL MCH (25.0-35.0) pg MCHC (31.0-37.0) g/dL RDW (11.5-15.5) % Plt Count (150-450) k/uL Lymphocytes # (1.0-4.8) k/uL Potassium 5.6 H (3.5-5.1) mmol/L Chloride 115 H (98-107) mmol/L Carbon Dioxide (22-30) mmol/L BUN 43 H (9-20) mg/dL Creatinine 3.21 H (0.66-1.25) mg/dL Glucose (74-99) mg/dL POC Glucose (mg/dL) (75-99) mg/dL Calcium (8.4-10.2) mg/dL AST (17-59) U/L ALT (21-72) U/L Total Protein (6.3-8.2) g/dL Assessment and Plan Assessment: Hypoxia related to hypoventilation Renal calculi left Acute renal failure related to above Left renal hydronephrosis Suspect chronic hypoxia and chronic hypercapnia likely chronic hypercapnic hypoxic respiratory failure Plan: Reviewed arterial blood gases at supplemental oxygen For now keep supplemental oxygen Monitor renal functions closely May need BiPAP machine or noninvasive ventilator as outpatient, for now patient is refusing BiPAP machine Time with Patient: Greater than 30
[2018-11-20] MEDS: ONDANSETRON 4 MG/2 ML VIAL IVP PRN (02:29)
[2018-11-20] MEDS: SODIUM CHLORIDE 0.9% 1,000 ML IV SCH ×2 (05:38→09:17)
[2018-11-20] MEDS: CYANOCOBALAMIN 500 MCG TAB PO SCH (08:38)
[2018-11-20] MEDS: PANTOPRAZOLE 40 MG TABLET PO SCH (08:38)
[2018-11-20] MEDS: FERROUS SULFATE 325 MG TAB PO SCH (08:38)
[2018-11-20] MEDS: FOLIC ACID 1 MG TAB PO SCH (08:38)
[2018-11-20] MEDS: TAMSULOSIN 0.4 MG CAP.ER.24H PO PRN (08:40)
--- NOTE | 2018-11-20 11:07 | P.PN ---
Subjective Patient is seen in follow-up for acute kidney injury. Unknown baseline renal function. Creatinine peaked at 8.04 this admission and was down to 3.1 as of yesterday. Etiology is obstructive uropathy. Patient had a cystoscopy done with a left ureteral stent placed on November 18. He admits to good urine output. Oral intake is fair. Feels nauseous this morning. He's been dry heaving. Vital signs are stable. General: The patient appeared well nourished and normally developed. HEENT: Head exam is unremarkable. Neck is without jugular venous distension. LUNGS: Lungs are clear to auscultation and percussion. Breath sounds decreased. HEART: Rate and Rhythm are regular. First and second heart sounds normal. No murmurs, rubs or gallops. ABDOMEN: Abdominal exam reveals normal bowel sounds. Non-tender and non- distended. No evidence of peritonitis. EXTREMITITES: No clubbing, cyanosis, or edema. Objective - Vital Signs Vital signs: Vital Signs Temp 99.3 F 11/20/18 06:52 Pulse 110 H 11/20/18 06:52 Resp 20 11/20/18 06:52 BP 133/83 11/20/18 06:52 Pulse Ox 92 L 11/20/18 06:52 Intake & Output 11/19/18 11/20/18 11/20/18 18:59 06:59 18:59 Intake Total 1080 100 Balance 1080 100 Weight 43.091 kg Intake: Oral 1080 100 Other: Voiding Method Urinal Urinal Urinal Incontinent Incontinent Incontinent # Voids 3 1 # Bowel Movements 1 1 - Labs CBC & Chem 7: 11/19/18 09:23 11/19/18 16:17 Assessment and Plan Plan: Assessment: 1. Acute kidney injury secondary to ATN secondary to obstructive uropathy. Creatinine peaked at 8.04 this admission and was down to 3.21 as of yesterday. Unknown baseline renal function. 2. Left-sided nephrolithiasis with hydronephrosis status post ureteral stent placed on November 18. 3. Pyuria. Urine culture negative so far. 4. Congenital spinal deformity. Severe scoliosis. 5. Hyperkalemia secondary to acute kidney injury and metabolic acidosis. Plan: Maintain normal saline at 75 mL an hour. Morning labs pending.
[2018-11-20 12:20] LABS: Potassium 5.8 mmol/L (3.5-5.1)
--- NOTE | 2018-11-20 12:41 | P.PN ---
Subjective Progress Note Date: 11/20/18 this is a 67-year-old gentleman with left-sided kidney stone, nephrolithiasis, acute on chronic renal failure and multiple other medical issues. Evaluated by urology. Status post cystoscopy with left pyelogram and double J catheter placement. Tolerated the procedure well. Creatinine improved, 3.28. Nauseated, potassium 5.6,receiving insulin and D50 for hyperkalemia.denies chest pain, palpitations or increased shortness of breath. 11/20/2018 KUB reporting calcification adjacent to stent. Creatinine worsening of to 5.84. Potassium 5.8. Patient declining IV fluids. Reports pain, declines pain medication. Nauseated. Denies chest pain, palpitations or shortness of breath. T-max 99.3.. Objective - Vital Signs Vital signs: Vital Signs Temp 99.3 F 11/20/18 06:52 Pulse 110 H 11/20/18 06:52 Resp 20 11/20/18 06:52 BP 133/83 11/20/18 06:52 Pulse Ox 92 L 11/20/18 06:52 Intake & Output 11/19/18 11/20/18 11/20/18 18:59 06:59 18:59 Intake Total 1080 100 Balance 1080 100 Weight 43.091 kg Intake: Oral 1080 100 Other: Voiding Method Urinal Urinal Urinal Incontinent Incontinent Incontinent # Voids 3 1 # Bowel Movements 1 1 - Exam PHYSICAL EXAM: VITAL SIGNS: [as above] GENERAL: sitting up at bedside, no acute distress HEENT: Conjunctivae normal. eyes normal. NECK: No JVD. No thyroid enlargement. No LNs CARDIOVASCULAR: S1, S2 regular.. No murmur RESPIRATION: Breath sounds diminished in the bases. No rhonchi or crackles. No bronchial breathing. ABDOMEN: Soft, nontender . No guarding. no masses palpable. Bowel sounds heard. LEGS: No edema. no swelling PSYCHIATRY: Alert and oriented -3, mood and affect normal. NERVOUS SYSTEM: Cranial N 2-12 grossly normal. Moves all 4 limbs. Diffuse weakness No focal deficits. Strength and sensation grossly intact.. Skin: no lesions, no rash Joints: No active swelling. No inflammation. Lymphatic system. No LN neck axilla or groin. - Labs CBC & Chem 7: 11/19/18 09:23 11/20/18 11:53 Labs: Abnormal Lab Results - Last 24 Hours (Table) 11/20/18 Range/Units 11:53 Potassium 5.8 H (3.5-5.1) mmol/L Chloride 113 H (98-107) mmol/L Carbon Dioxide 20 L (22-30) mmol/L BUN 55 H (9-20) mg/dL Creatinine 5.84 H (0.66-1.25) mg/dL Glucose 109 H (74-99) mg/dL Assessment and Plan Assessment: acute renal failure, secondary to ATN secondary to obstructive uropathy, status post cystoscopy with left ureteral stent placement -left-sided nephrolithiasis with hydronephrosis, status post double-J ureteral stent placement -hyperkalemia secondary to renal failure -Congenital spinal deformity with severe scoliosis plan: Continue on current medication regime ,monitoring and symptomatic treatment. Further recommendations from urology pending.hyperkalemia cocktail as per nephrology, repeat potassium level this afternoon. IV fluids as per nephrology.Close monitoring of renal function, electrolytes with repeat labs ordered for a.m. The impression and plan of care has been dictated as directed. : I performed a history and examination of this patient, discussed the same with the dictator. I agree with the dictator's note ,documented as a scribe. Any additional findings or plans will be noted.
[2018-11-20] MEDS ORDERED: SODIUM BICARB 8.4% 50 ML SYR (1 MEQ/ML) IV STA (13:49)
[2018-11-20] MEDS ORDERED: INSULIN REGULAR 100 UNIT/ML VIAL IV ONE (13:49)
[2018-11-20] MEDS ORDERED: DEXTROSE 50% SYRINGE 50 ML IVP STA (13:50)
[2018-11-20] MEDS ORDERED: SODIUM BICARB 8.4% 50 ML SYR (1 MEQ/ML) ONE (17:55)
[2018-11-20] MEDS ORDERED: EPINEPHrine 10 ML SYRINGE (0.1 MG/ML) ONE (17:55)
[2018-11-20 18:40] LABS: Glucose,Whole Blood 150 mg/dL (75-99)
[2018-11-20] MEDS ORDERED: PROPOFOL 1,000 MG in EMPTY BAG 1 BAG IV SCH (19:00)
[2018-11-20 19:34] LABS: ABG Base Excess -3.5 mmol/L; ABG HCO3 24 mmol/L (21-25); ABG PCO2 53 mmHg (35-45); ABG PH 7.25 (7.35-7.45); ABG PO2 88 mmHg (83-108); ABG TCO2 25 mmol/L (19-24); Allen Test Performed? Yes
[2018-11-20 19:35] LABS: ABG Oxygen Saturation 96.7 % (94-97)
[2018-11-20 20:07] LABS: Appearance,Urine Cloudy (Clear); Bilirubin,Urine Negative (Negative); Blood,Urine Large (Negative); Color,Urine Light Red; Glucose,Urine (UA) 1+ (Negative); Ketones,Urine 1+ (Negative); Leukocyte Esterase,Urine Moderate (Negative); Nitrite,Urine Negative (Negative); PH, Urine 5.5 (5.0-8.0); Protein,Urine 1+ (Negative); RBC,Urine >182 /hpf (0-5); Specific Gravity,Urine 1.016 (1.001-1.035); Urobilinogen,Urine <2.0 mg/dL (<2.0)
--- NOTE | 2018-11-20 20:16 | XR ---
EXAMINATION: XR chest 1V portable DATE AND TIME: 11/20/2018 7:17 PM CLINICAL INDICATION: PHH; Tube placement TECHNIQUE: Portable AP semiupright COMPARISON: None FINDINGS: Prominent architectural distortion involving the upper chest and mid chest. ET tube tip appears to be superimposed over the distal trachea, but foreshortening of the thoracic st ructures limits visualization. NG tube is present, with its port superimposed over the expected position of the gastric body. There is dense consolidation throughout the left lung parenchyma, consistent with a clinical diagnosi s of pneumonia. . No definite pneumothorax or other abnormal gas collection is seen. However, it is noted that there is markedly limited radiographic sensitivity for abnormal gas collections in this radiographic setting. IMPRESSION: 1. Postintubation chest radiograph. 2. Dense consolidation throughout the left lung parenchyma. Note: Would suggest low threshold for use of CT imaging.
[2018-11-20 20:23] LABS: Anisocytosis Slight; HCT 27.1 % (39.0-53.0); Hypochromasia Marked; MCH 23.7 pg (25.0-35.0); MCHC 33.1 g/dL (31.0-37.0); MCV 71.5 fL (80.0-100.0); Mean Platelet Volume 7.7; Microcytosis Moderate; Platelet Count 134 k/uL (150-450); Poikilocytosis Slight; RBC 3.79 m/uL (4.30-5.90); RDW 16.4 % (11.5-15.5); WBC 10.2 k/uL (3.8-10.6)
[2018-11-20 20:27] LABS: Albumin 2.8 g/dL (3.5-5.0); Calcium 7.1 mg/dL (8.4-10.2); Magnesium 1.6 mg/dL (1.6-2.3); Phosphorus 3.7 mg/dL (2.5-4.5); Potassium 4.5 mmol/L (3.5-5.1); Total Bilirubin 0.2 mg/dL (0.2-1.3); Total Protein 5.2 g/dL (6.3-8.2)
[2018-11-20 20:39] LABS: Creatine Kinase MB 5.6 ng/mL (0.0-2.4); Troponin I 0.031 ng/mL (0.000-0.034)
[2018-11-20] MEDS ORDERED: CHLORHEXIDINE GLUCONATE 15 ML CUP MUCOUS MEM SCH (21:00)
[2018-11-20 21:11] LABS: Band Neutrophils % 1 %; Crenated RBC Present; Neutrophils % (M) 97 %; Nucleated Red Blood Cells 0 /100 WBC (0-0); Polychromasia Present; RBC Fragments Present; Total Cells Counted 100
[2018-11-20 23:07] LABS: INR 1.1 (<1.2); Prothrombin Time 11.9 sec (9.0-12.0)
--- NOTE | 2018-11-20 23:07 | P.PN ---
Subjective Progress Note Date: 11/20/18 Principal diagnosis: Aspiration pneumonia, cardiac arrest likely respiratory related to hypercapnic hypoxic respiratory failure, worsening sepsis due to renal failure and nonfunctioning stent, worsening of renal functions impaired to yesterday Hypoxemia related to hypoventilation, severe degree of kyphoscoliosis, hypercapnic hypoxic respiratory failure, renal calculi left, obstructive uropathy with left-sided hydronephrosis, urinary tract colic with left ureteric calculi 11/20/2018, patient seen eval reexamined during the rounds patient seen in the ICU he is intubated with size 6 ET tube resting on ventilator he is on propofol 40 mics hemodynamic status stable not on any vasopressors blood pressure is stable oxygenation stable his ventilator setting includes assist control rate of 20 breathing 20 tidal volume 300, PEEP 5, 100% oxygen, peak airway pressure is 33 the ABG results reviewed postintubation also chest x-ray reviewed postintubation there is a large infiltrate seen upper lobe was not there in previous x-rays suggestive of aspiration pneumonia, events from this evening noted patient underwent asystole likely related to respiratory arrest related to hypercapnia, patient was recommended to use BiPAP he declined he remains on supplemental oxygen required more oxygen to keep a stable oxygenation saturation, patient underwent ACLS protocol immediately got pulses back, he did require epinephrine and chest compression, labs are reviewed, white cell count i s 10,200, hemoglobin is 9, MCV 71, arterial blood gas revealed postintubation pH 7.25 pCO2 53 pO2 of 88, renal functions revealed BUN/creatinine of 41 and 2.86 which were down from earlier this morning of 55 and 5.84, urine continued to show enlarged and nitrite remained cloudy with moderate leukocyte esterase trace, cultures are negative in urine, patient is being evaluated placement in extended care facility for advanced renal failure and complexity of the procedure 11/19/2018, patient seen and evaluated examined during the rounds he is doing better he is status post a stent placement denies any chest pain he is breathing comfortably he remains on oxygen This is a 67-year-old male seen and evaluated examined in the medical floor this patient is admitted to hospital with left ureteric calculi she was identified as having left ureteral 4 mm stones off note that patient has severe extensive kyphoscoliosis he have borderline shortness of breath patient is currently denies any shortness of breath or chest pain symptoms improve however her room air saturation was just 93%, he require 2 L oxygen denies any cough or sputum production denies any chest pain denies any shortness of breath at this time Objective - Vital Signs Vital signs: Vital Signs Temp 99.2 F 11/20/18 19:00 Pulse 99 11/20/18 19:00 Resp 23 11/20/18 19:00 BP 113/83 11/20/18 19:00 Pulse Ox 98 11/20/18 19:00 Intake & Output 11/20/18 11/20/18 11/21/18 06:59 18:59 06:59 Intake Total 100 75.646 Output Total 951 450 Balance -851 -374.354 Intake: IV 75 Sodium Chloride 0.9% 1, 75 000 ml @ 75 mls/hr IV . [id number] BERNARDA Rx#:[id number] Intake, IV Titration 0.646 Amount Propofol 1,000 mg In 0.646 Empty Bag 1 bag @ Titrate IV .Q0M BERNARDA Rx#: [id number] Oral 100 Output: Urine 500 450 Straight 500 Post Void Residual 451 Other: Voiding Method Urinal Urinal Incontinent Incontinent # Voids 1 0 # Bowel Movements 1 - Exam - Constitutional General appearance: sedated with propofol- EENT Eyes: EOMI, PERRLA Ears: bilateral: normal - Neck Neck: normal ROM Carotids: bilateral: upstroke normal - Respiratory Severe kyphoscoliosis present Respiratory: Intubated with size 6 endotracheal tube bilateral: Coarse breath sound bilaterally - Cardiovascular Rhythm: regular Heart sounds: normal: S1, S2 - Gastrointestinal General gastrointestinal: normal bowel sounds - Neurologic Neurologic: CNII-XII intact - Musculoskeletal Musculoskeletal: generalized weakness, strength equal bilaterally - Psychiatric Psychiatric: Sedated with propofol - Labs CBC & Chem 7: 11/20/18 19:50 11/20/18 19:50 Labs: Abnormal Lab Results - Last 24 Hours (Table) 11/20/18 11/20/18 11/20/18 Range/Units 11:53 18:37 19:10 RBC (4.30-5.90) m/uL Hgb (13.0-17.5) gm/dL Hct (39.0-53.0) % MCV (80.0-100.0) fL MCH (25.0-35.0) pg RDW (11.5-15.5) % Plt Count (150-450) k/uL Neutrophils # (Manual) (1.3-7.7) k/uL Lymphocytes # (Manual) (1.0-4.8) k/uL ABG pH 7.25 L (7.35-7.45) ABG pCO2 53 H (35-45) mmHg ABG Total CO2 25 H (19-24) mmol/L Potassium 5.8 H (3.5-5.1) mmol/L Chloride 113 H (98-107) mmol/L Carbon Dioxide 20 L (22-30) mmol/L BUN 55 H (9-20) mg/dL Creatinine 5.84 H (0.66-1.25) mg/dL Glucose 109 H (74-99) mg/dL POC Glucose (mg/dL) 150 H (75-99) mg/dL Calcium (8.4-10.2) mg/dL CK-MB (CK-2) (0.0-2.4) ng/mL Total Protein (6.3-8.2) g/dL Albumin (3.5-5.0) g/dL Urine Protein (Negative) Urine Glucose (UA) (Negative) Urine Ketones (Negative) Urine Blood (Negative) Ur Leukocyte Esterase (Negative) Urine RBC (0-5) /hpf Urine WBC (0-5) /hpf 11/20/18 11/20/18 11/20/18 Range/Units 19:20 19:50 19:50 RBC 3.79 L (4.30-5.90) m/uL Hgb 9.0 L (13.0-17.5) gm/dL Hct 27.1 L (39.0-53.0) % MCV 71.5 L (80.0-100.0) fL MCH 23.7 L (25.0-35.0) pg RDW 16.4 H (11.5-15.5) % Plt Count 134 L (150-450) k/uL Neutrophils # (Manual) 9.90 H (1.3-7.7) k/uL Lymphocytes # (Manual) 0.20 L (1.0-4.8) k/uL ABG pH (7.35-7.45) ABG pCO2 (35-45) mmHg ABG Total CO2 (19-24) mmol/L Potassium (3.5-5.1) mmol/L Chloride 111 H (98-107) mmol/L Carbon Dioxide 18 L (22-30) mmol/L BUN 41 H (9-20) mg/dL Creatinine 2.86 H (0.66-1.25) mg/dL Glucose 123 H (74-99) mg/dL POC Glucose (mg/dL) (75-99) mg/dL Calcium 7.1 L (8.4-10.2) mg/dL CK-MB (CK-2) (0.0-2.4) ng/mL Total Protein 5.2 L (6.3-8.2) g/dL Albumin 2.8 L (3.5-5.0) g/dL Urine Protein 1+ H (Negative) Urine Glucose (UA) 1+ H (Negative) Urine Ketones 1+ H (Negative) Urine Blood Large H (Negative) Ur Leukocyte Esterase Moderate H (Negative) Urine RBC >182 H (0-5) /hpf Urine WBC 30 H (0-5) /hpf 11/20/18 Range/Units 19:50 RBC (4.30-5.90) m/uL Hgb (13.0-17.5) gm/dL Hct (39.0-53.0) % MCV (80.0-100.0) fL MCH (25.0-35.0) pg RDW (11.5-15.5) % Plt Count (150-450) k/uL Neutrophils # (Manual) (1.3-7.7) k/uL Lymphocytes # (Manual) (1.0-4.8) k/uL ABG pH (7.35-7.45) ABG pCO2 (35-45) mmHg ABG Total CO2 (19-24) mmol/L Potassium (3.5-5.1) mmol/L Chloride (98-107) mmol/L Carbon Dioxide (22-30) mmol/L BUN (9-20) mg/dL Creatinine (0.66-1.25) mg/dL Glucose (74-99) mg/dL POC Glucose (mg/dL) (75-99) mg/dL Calcium (8.4-10.2) mg/dL CK-MB (CK-2) 5.6 H (0.0-2.4) ng/mL Total Protein (6.3-8.2) g/dL Albumin (3.5-5.0) g/dL Urine Protein (Negative) Urine Glucose (UA) (Negative) Urine Ketones (Negative) Urine Blood (Negative) Ur Leukocyte Esterase (Negative) Urine RBC (0-5) /hpf Urine WBC (0-5) /hpf Assessment and Plan Assessment: Cardiopulmonary arrest likely respiratory related due to hypercapnic respiratory failure Aspiration pneumonia Hypoxia related to hypoventilation Renal calculi left Acute renal failure related to above Left renal hydronephrosis Severe kyphoscoliosis Suspect chronic hypoxia and chronic hypercapnia likely chronic hypercapnic hypoxic respiratory failure Plan: Reviewed arterial blood gases at supplemental oxygen and labs Continue vent setting as mentioned above We'll switch antibiotics to Zosyn Repeat x-ray and labs and arterial blood gas tomorrow Patient is being considered for transfer to [facility] for more definitive intervention for left hydronephrosis and left ureter calculi causing obstructive uropathy and left hydro-nephrosis Critical care as per time spent 35 minutes Time with Patient: Greater than 30
[2018-11-20 23:12] LABS: Partial Thromboplastin Time 21.8 sec (22.0-30.0)
[2018-11-20 23:38] VITALS: RESP 20; TEMP 98.4
[2018-11-21 01:30] VITALS: BP 129/79; PULSE 95
[2018-11-21] MEDS ORDERED: TAMSULOSIN 0.4 MG CAP.ER.24H PO SCH (09:00)
--- NOTE | 2018-11-22 12:13 | CDI ---
Documentation Clarification Form Date: 11/22/2018 From: Lisa Fernandes Phone: If questions call Nalini Mendez @ [phone], Hours-8:30 am & 5 pm M- F Admit Date: 11/15/2018 9:05:00 PM Patient Name: Mingo Shelby Visit Number: [id number] Discharge Date: 11/21/2018 8:11:00 AM ATTENTION: The Clinical Documentation Specialists (CDI) and [facility] Coding Staff appreciate your assistance in clarifying documentation. Please respond to the clarification below the line at the bottom and electronically sign. The CDI & [facility] Coding staff will review the response and follow-up if needed. Please note: Queries are made part of the Legal Health Record. If you have any questions, please contact the author of this message via ITS. Dr. Dashawn Rudolph Per nephrology consult there was pyuria. Acute kdney injury secondary to ATN secondary to infection. Urine cultures were no growth. History/Risk Factors: left nephrolithiasis w hydronephrosis, congential scoliosis Lab findings: WBC 6.4-10.2; Neutrophils 4.8-7.0 Vital Signs: T-98.0, P-87/112, R-20/26, BP-109/59-93/62, O2 sat-90/83 Treatment: IV Rocephin started on 11/17 Procedure: cystoscopy, left retrograde pyelogram, placement of left double J catheter In your professional opinion, can you please clarify the cause of the pyuria? UTI ruled in --POA UTI ruled in - not POA UTI ruled out Other, please specify Unable to determine MTDD
--- NOTE | 2018-11-23 09:56 | DS ---
DISCHARGE SUMMARY ADDENDUM TO PROGRESS NOTE AND DISCHARGE SUMMARY Please add: Chronic colonization, acute kidney injury secondary acute tubular necrosis and possibly colonization as the cause of the pyuria. No active urinary tract infection. MMODL / IJN: [id number] /
--- NOTE | 2018-11-26 08:07 | DS ---
DISCHARGE SUMMARY DATE OF ADMISSION: 11/15/2018 DATE OF DISCHARGE: 11/21/2018 DISCHARGE MEDICATIONS: 1. Mchenry 5/325 one to two q.4. 2. Flomax 0.4 mg daily. 3. Folic acid 0.4 mg daily. 4. Iron sulfate 325 daily. 5. B12, 1000 mcg daily. 6. Zofran 8 mg q.8 hours. CONDITION: Stable. PROGNOSIS: Guarded. Ambulate as tolerated. HOSPITAL COURSE OF EVENTS: This 67-year-old white male had acute kidney injury and colonization cause of the pyuria. No urinary tract infection was seen. Chronic kidney disease stage 4 was seen. The patient underwent acute urostomy to fix acute kidney injury, urostomy or urostomy stenosis per Dr. Pineda. The patient developed respiratory distress, worse than normal, for which Dr. Mendoza has been seeing the patient. He has also been seen by renal physician. He had severe degree of kyphoscoliosis and hypoxemia due to hypoventilation hypercapnic hypoxic respiratory failure, renal calculi, obstructive uropathy, as mentioned above. The patient became severely short of breath using 15 L. He was intubated for respiratory distress by Dr. Mendoza for unclear reasons. The patient's renal failure was worsening, status post urostomy tubes. He was sent for ureteral obstruction due to urostomy stent failure down to [facility] as he was stabilized on the ventilator per Dr. Mendoza prior to transfer. Please see further orders. MMODL / IJN: [id number] /
== END 2018-11-21 08:11 | disposition short-term general hospital (02) | DRG 659 ==
LOC: EC 18:23 → 4MS4W 21:05 → OBSVTOIN 21:05 → EEVIPCON 21:05 → 4MS4W 21:38 → 2SICU 11-20 18:12
PROVIDERS: ADMIT Family Medicine; ATTEND Family Medicine
PROC: 5A09457 Assistance with Respiratory Ventilation, 24-96 Consecutive Hours, Continuous Positive Airway Pressure (ICD-10-PCS; 2018-11-17)
PROC: BT1F1ZZ Fluoroscopy of Left Kidney, Ureter and Bladder using Low Osmolar Contrast (ICD-10-PCS; 2018-11-18)
PROC: 0T778DZ Dilation of Left Ureter with Intraluminal Device, Via Natural or Artificial Opening Endoscopic (ICD-10-PCS; principal; 2018-11-18 13:00)
PROC: 0BH17EZ Insertion of Endotracheal Airway into Trachea, Via Natural or Artificial Opening (ICD-10-PCS; 2018-11-20)
PROC: 5A1935Z Respiratory Ventilation, Less than 24 Consecutive Hours (ICD-10-PCS; 2018-11-20)
PROC: 0D9670Z Drainage of Stomach with Drainage Device, Via Natural or Artificial Opening (ICD-10-PCS; 2018-11-20)
PROC: 5A12012 Performance of Cardiac Output, Single, Manual (ICD-10-PCS; 2018-11-20)
PROC: 04HK33Z Insertion of Infusion Device into Right Femoral Artery, Percutaneous Approach (ICD-10-PCS; 2018-11-20)
DX: N13.2 Hydronephrosis with renal and ureteral calculous obstruction (principal); J69.0 Pneumonitis due to inhalation of food and vomit; I46.9 Cardiac arrest, cause unspecified; A41.9 Sepsis, unspecified organism; J96.12 Chronic respiratory failure with hypercapnia; J96.11 Chronic respiratory failure with hypoxia; E87.2 Acidosis; Q67.5 Congenital deformity of spine; N17.0 Acute kidney failure with tubular necrosis; N18.4 Chronic kidney disease, stage 4 (severe); J44.9 Chronic obstructive pulmonary disease, unspecified; E87.5 Hyperkalemia; N32.3 Diverticulum of bladder; F79 Unspecified intellectual disabilities; M19.90 Unspecified osteoarthritis, unspecified site; Z79.899 Other long term (current) drug therapy; Z87.442 Personal history of urinary calculi; Z88.5 Allergy status to narcotic agent; Z88.0 Allergy status to penicillin
CPT/HCPCS: 36600; 71045; 74018; 74420; 76770; 80048; 80053; 81001; 82365; 82553; 82805; 83735; 84100; 84132; 84484; 85025; 85610; 85730; 87086; 93005; 94002; 94760; 96361; 96374; 96375; 99285